=== PATIENT | female | born 1955 | race Caucasian/White ===

== ENCOUNTER 2018-09-17 06:58 | Day surgery (SDC) | payer MEDICARE, OTHER ==
[~2018-09-17] VITALS: Ht 162.6 cm; Wt 100.0 kg
[~2018-09-17 06:58] MED LIST: Allergy Medicat25 MG PO; BOSWELLIA SERRAT1 GM PO; Coumadin4 MG PO; Curcumin1 GM PO; DOCU100 PO; FISH1000 PO; HYDACE10B PO; MAGOXI400 PO; MULTI VITAMIN1 EACH PO; MULTIVITAMIN PO; NAPR220 PO; NAPR500 PO; Naproxen250 MG PO; PROPOLIS PO; ROXICODONE5 MG PO; WARF4 PO; ZESTORETIC 20-121 EA PO
--- NOTE | 2018-09-17 11:06 | NUR ---
DR. DUGGAN TO BEDSIDE TO DISCUSS RESULTS OF PROCEDURE WITH PT. PT RESTING SUPINE ON [facility] RIGHT GROIN SITE REMAINS STABLE. VSS. WILL CONTINUE TO MONITOR.
--- NOTE | 2018-09-17 14:12 | NUR ---
NEW PRESCRIPTION CALLED INTO [facility] IN [place] PER PT REQUEST. DR. DUGGAN WANTS PT TO START TAKING LIPITOR 10 MG PO DAILY AND ASPIRIN 81 MG PO DAILY. PT VERBALIZED UNDERSTANDING. NEW MEDICATION CALLED INTO PHARMACY. PT VERBALIZED UNDERSTANDING OF D/C INSTRUCTIONS. PREVIOUSLY AMBULATES TO RESTROOM WITH STEADY GAIT. HERE TO DRIVE HER HOME. PERSONAL BELONGINGS SENT WITH PT. RIGHT GROIN SITE REMAINS STABLE. ARNAV PAD INTACT. NO ACTIVE EXTERNAL BLEEDING, OOZING, OR PAIN NOTED. VSS. DENIES NEED FOR W/C RIDE TO PRIVATE VEHICLE.
[2018-09-29] MEDS ORDERED: METO25ER PO (14:12)
[2018-09-29] MEDS ORDERED: ST. JOSEPH ASPI81 MG PO (14:13)
== END 2018-09-17 14:00 | disposition home or self-care (01) ==
LOC: MHTC 06:58
DX: R07.9 Chest pain, unspecified (principal); Z88.5 Allergy status to narcotic agent; I10 Essential (primary) hypertension
CPT/HCPCS: 76937; 93454; 99152; 99153; C1769; C1894; J1644; J2250; J3010; J7030; Q9967

== ENCOUNTER 2018-09-30 06:09 | Day surgery (SDC) | payer MEDICARE, OTHER ==
[~2018-09-30] VITALS: Ht 162.6 cm; Wt 102.2 kg
[~2018-09-30 06:09] MED LIST changes: +METO25ER PO; +ST. JOSEPH ASPI81 MG PO
[2018-09-30] MEDS ORDERED: ATOR10 PO (07:04)
--- NOTE | 2018-09-30 09:12 | NUR ---
09/30/18 0912 Joycelyn Jimenes INTRASCALING BLOCK COMPLETED IN OR BY DR. MILLER WITHOUT DIFFICULTY. PT TOLERATED PROCEDURE WELL.
--- NOTE | 2018-09-30 11:35 | NUR ---
09/30/18 1135 Josemanuel Rosario S PATIENT OPENS EYES AND DENIES THE NEED FOR PAIN MEDS AT THIS TIME. O2 IS 93% ON 15L FACE TENT. WILL CONTINUE TO MONITOR.
== END 2018-09-30 13:45 | disposition home or self-care (01) ==
LOC: ORSCSDS 06:09
PROVIDERS: Orthopaedic Surgery
PROC: 0RNJ4ZZ Release Right Shoulder Joint, Percutaneous Endoscopic Approach (ICD-10-PCS; principal; 2018-09-30 07:30)
PROC: 0LS14ZZ Reposition Right Shoulder Tendon, Percutaneous Endoscopic Approach (ICD-10-PCS; principal; 2018-09-30 07:30)
PROC: 0LQ14ZZ Repair Right Shoulder Tendon, Percutaneous Endoscopic Approach (ICD-10-PCS; principal; 2018-09-30 07:30)
DX: M75.121 Complete rotator cuff tear or rupture of right shoulder, not specified as traumatic (principal); I10 Essential (primary) hypertension; Z79.82 Long term (current) use of aspirin; Z79.899 Other long term (current) drug therapy
CPT/HCPCS: C1713; J0171; J0690; J1100; J1885; J2250; J2405; J3010; J7120

== ENCOUNTER 2023-10-14 07:48 | Day surgery (SDC) | payer MEDICARE, OTHER ==
[~2023-10-14] VITALS: Ht 160 cm; Wt 92.1 kg
[~2023-10-14 07:48] MED LIST changes: +AMLO5 PO; +ATOR10 PO; +FURO20 PO; +LISI20 PO; +MELA3; +PROBIOTIC; +ROSU10TA
[2023-10-14] MEDS ORDERED: MULTI-VITAMIN1 EAC2 (08:23)
[2023-10-14 11:05] VITALS: BP 105/86
== END 2023-10-14 10:56 | disposition home or self-care (01) ==
LOC: ORSCSDS 07:48
PROVIDERS: Internal Medicine Gastroenterology
PROC: 0DBN8ZX Excision of Sigmoid Colon, Via Natural or Artificial Opening Endoscopic, Diagnostic (ICD-10-PCS; principal; 2023-10-14 09:30)
PROC: 0DBL8ZX Excision of Transverse Colon, Via Natural or Artificial Opening Endoscopic, Diagnostic (ICD-10-PCS; principal; 2023-10-14 09:30)
DX: Z12.11 Encounter for screening for malignant neoplasm of colon (principal); Z86.010 Personal history of colon polyps; Z80.0 Family history of malignant neoplasm of digestive organs; D12.5 Benign neoplasm of sigmoid colon; D12.3 Benign neoplasm of transverse colon; K64.4 Residual hemorrhoidal skin tags; I25.10 Atherosclerotic heart disease of native coronary artery without angina pectoris; E78.5 Hyperlipidemia, unspecified; I10 Essential (primary) hypertension; K57.30 Diverticulosis of large intestine without perforation or abscess without bleeding; E66.9 Obesity, unspecified; Z68.37 Body mass index [BMI] 37.0-37.9, adult; Z79.899 Other long term (current) drug therapy
CPT/HCPCS: 88305; J2704; J7120

== ENCOUNTER 2023-10-20 12:30 | Day surgery (SDC) | payer MEDICARE, OTHER ==
[~2023-10-20] VITALS: Ht 160 cm; Wt 97.4 kg
[~2023-10-20 12:30] MED LIST changes: +MULTI-VITAMIN1 EAC2; +Ropivacaine 0.5% HCl/Pf 5 MG/ML 20ML VIAL ONE
--- NOTE | 2023-10-20 13:05 | NUR ---
10/20/23 1305 Leandra Griffith NOTED RED SPOT, DIME SIZE, WITH PUSSTUALS. NOTIFIED DR. ORANTES. WILL CONTINUE TO PREP PT WITHOUT STARTING IV UNTIL HE GIVES THE OK. PT NOTIFIED.
[2023-10-20] MEDS ORDERED: CeFAZolin Sodium 2,000 MG VIAL ONE (13:09)
[2023-10-20] MEDS ORDERED: NS 50 ML IV ONE (13:09)
[2023-10-20] MEDS ORDERED: Lactated Ringer's 1,000 ML IV ONE (14:02)
[2023-10-20] MEDS ORDERED: propofoL 20 ML IV ONE (14:15)
[2023-10-20] MEDS ORDERED: FentaNYL Citrate 50 MCG/ML 2 ML Injection ONE (14:16)
[2023-10-20] MEDS ORDERED: Ondansetron HCl 2 MG / ML 2ML Vial ONE (14:17)
[2023-10-20] MEDS ORDERED: Dexamethasone Sod Phos 10 MG/ML 1ML VIAL ONE (14:17)
[2023-10-20] MEDS ORDERED: EPINEPhrine HCl 1 MG/ML 1ML Amp XX ONE (14:28)
[2023-10-20 15:31] VITALS: BP 123/74
== END 2023-10-20 16:27 | disposition home or self-care (01) ==
LOC: ORSCSDS 12:30
PROVIDERS: Podiatrist Foot & Ankle Surgery
PROC: 0SGN04Z Fusion of Left Metatarsal-Phalangeal Joint with Internal Fixation Device, Open Approach (ICD-10-PCS; principal; 2023-10-20 14:15)
DX: M20.22 Hallux rigidus, left foot (principal); I10 Essential (primary) hypertension; I25.10 Atherosclerotic heart disease of native coronary artery without angina pectoris; Z79.899 Other long term (current) drug therapy; Z68.34 Body mass index [BMI] 34.0-34.9, adult
CPT/HCPCS: C1713; J0171; J0690; J1100; J2405; J2704; J2795; J3010

== ENCOUNTER 2025-08-16 11:53 | Day surgery (SDC) | payer OTHER ==
[~2025-08-16] VITALS: Ht 157.5 cm; Wt 77.5 kg
[~2025-08-16 11:53] MED LIST changes: +LACT; +MIRALAX1714 PO; -Ropivacaine 0.5% HCl/Pf 5 MG/ML 20ML VIAL ONE; +SEMAGLUTID0.25 MG/0. SC; +TORS10 PO; +VYNDAMAX61 MG PO
[2025-08-16 14:07] VITALS: BP 105/67
== END 2025-08-16 14:07 | disposition home or self-care (01) ==
LOC: ORSCSDS 11:53
PROVIDERS: Specialist
PROC: 0DBN8ZX Excision of Sigmoid Colon, Via Natural or Artificial Opening Endoscopic, Diagnostic (ICD-10-PCS; principal; 2025-08-16 13:30)
PROC: 0DBH8ZX Excision of Cecum, Via Natural or Artificial Opening Endoscopic, Diagnostic (ICD-10-PCS; principal; 2025-08-16 13:30)
DX: Z12.11 Encounter for screening for malignant neoplasm of colon (principal); D12.0 Benign neoplasm of cecum; K63.5 Polyp of colon; K64.8 Other hemorrhoids; K57.30 Diverticulosis of large intestine without perforation or abscess without bleeding; Z80.0 Family history of malignant neoplasm of digestive organs; Z86.0102 Personal history of hyperplastic colon polyps; I25.10 Atherosclerotic heart disease of native coronary artery without angina pectoris; E78.5 Hyperlipidemia, unspecified; I10 Essential (primary) hypertension; I42.9 Cardiomyopathy, unspecified; F32.A Depression, unspecified; E66.9 Obesity, unspecified; Z68.31 Body mass index [BMI] 31.0-31.9, adult; Z79.85 Long-term (current) use of injectable non-insulin antidiabetic drugs; Z79.899 Other long term (current) drug therapy
CPT/HCPCS: 88305; J2704; J7120